=== PATIENT | female | born 1970 | race Caucasian/White ===

== ENCOUNTER 2017-11-04 06:27 | Inpatient (IN) | payer MEDICAID ==
[2017-11-04 07:24] LABS: ADD MAN DIFF? NO
[2017-11-04] MEDS: FAMOTIDINE 20 MG INJ IV ×2 (07:26→20:32)
[2017-11-04] MEDS: ONDANSETRON 4 MG INJ IV (07:26)
[2017-11-04] MEDS: SOD CHLORIDE 0.9% 1,000 ML IV ×3 (07:29→16:03)
[2017-11-04] MEDS: morphine 2 MG INJ IV (07:29)
[2017-11-04 07:34] LABS: ADD UMIC YES; UR ASCORBIC ACID NEGATIVE (NEGATIVE); UR BILIRUBIN (Dip) NEGATIVE (NEGATIVE); UR BLOOD (Dip) 1+ mg/dL (NEGATIVE); UR CLARITY CLEAR (CLEAR); UR COLOR YELLOW (YELLOW); UR GLUCOSE (Dip) NEGATIVE (NEGATIVE); UR KETONES (Dip) NEGATIVE (NEGATIVE); UR LEUKOCYTE ESTERASE (Dip) NEGATIVE Leu/ul (NEGATIVE); UR NITRITE (Dip) NEGATIVE (NEGATIVE); UR RBC 1 /HPF (0-5); UR SPECIFIC GRAVITY (Dip) 1.011 (1.003-1.030); UR TOTAL PROTEIN (Dip) NEGATIVE (NEGATIVE); UR UROBILINOGEN (Dip) NEGATIVE (NEGATIVE); UR WBC 1 /HPF (0-5)
[2017-11-04 07:38] LABS: WHITE BLOOD COUNT 7.5 10^3/ul (4.8-10.8)
[2017-11-04 07:38] LABS: BASOPHILS % 0.4 % (0.0-2.0); EOSINOPHILS # 0.1 10^3/ul (0.0-0.5); EOSINOPHILS % 1.1 % (0.0-7.0); HEMATOCRIT 37.9 % (37.0-47.0); HEMOGLOBIN 12.5 g/dl (12.0-16.0); LYMPHOCYTES # 0.8 10^3/ul (0.8-2.9); LYMPHOCYTES % 10.6 % (15.0-51.0); MEAN CORPUSCULAR HEMOGLOBIN 29.6 pg (29.0-33.0); MEAN CORPUSCULAR VOLUME 89.8 fl (82.0-101.0); MEAN PLATELET VOLUME 10.6 fl (7.4-10.4); MONOCYTE # 0.5 10^3/ul (0.3-0.9); MONOCYTES % 6.6 % (0.0-11.0); NEUTROPHIL # 6.1 10^3/ul (1.6-7.5); PLATELET COUNT 231 10^3/UL (140-415); RED BLOOD COUNT 4.22 10^6/ul (4.20-5.40); RED CELL DISTRIBUTION WIDTH 13.7 % (11.5-14.5)
[2017-11-04 08:02] LABS: ALANINE AMINOTRANSFERASE 34 IU/L (13-69); ALBUMIN 4.2 g/dl (3.3-4.9); ALKALINE PHOSPHATASE 80 IU/L (42-121); ANION GAP 16 (8-16); ASPARTATE AMINO TRANSFERASE 33 IU/L (15-46); BLOOD UREA NITROGEN 15 mg/dl (7-20); CALCIUM 9.1 mg/dl (8.4-10.2); CARBON DIOXIDE 28 mmol/L (21-31); CHLORIDE 107 mmol/L (97-110); GLUCOSE 113 mg/dl (70-220); POTASSIUM 4.2 mmol/L (3.5-5.1); SODIUM 147 mmol/L (135-144); TOTAL PROTEIN 7.2 g/dl (6.1-8.1)
[2017-11-04 08:11] LABS: TROPONIN-I < 0.012 ng/ml (0.00-0.12)
[2017-11-04 08:53] LABS: LIPASE 19851 U/L (23-300)
[2017-11-04] MEDS ORDERED: SOD CHLORIDE 0.9% 1,000 ML IV (10:43)
[2017-11-04] MEDS ORDERED: ONDANSETRON 4 MG INJ IV (11:00)
[2017-11-04] MEDS ORDERED: NACL 0.9% 3 ML SYG IV (11:00)
[2017-11-04] MEDS ORDERED: ACETAMINOPHEN 325 MG TAB PO ×2 (11:00)
[2017-11-04 13:08] LABS: CHOLESTEROL 161 mg/dl (100-200)
[2017-11-04 13:08] LABS: CHOL/HDL RATIO 2.5 RATIO; HDL CHOLESTEROL 62 mg/dl (34-88); LDL CHOLESTEROL,CALCULATED 75 mg/dl; TRIGLYCERIDES 119 mg/dl (0-149)
[2017-11-04 13:12] LABS: HEMOGLOBIN A1C 5.4 % (0-5.9)
[2017-11-04 15:05] LABS: AMPHETAMINE/METHAMPHETAMINE Negative (NEGATIVE); BARBITURATES Negative (NEGATIVE); BENZODIAZEPINES Negative (NEGATIVE); CANNABINOIDS Negative (NEGATIVE); COCAINE Negative (NEGATIVE); OPIATES Negative (NEGATIVE)
[2017-11-04] MEDS: SOD CHLORIDE 0.45% 1,000 ML IV ×2 (20:00→20:25)
[2017-11-05] MEDS: SOD CHLORIDE 0.45% 1,000 ML IV ×3 (04:00→20:00)
[2017-11-05 06:07] LABS: ADD MAN DIFF? NO
[2017-11-05 06:08] LABS: BASOPHILS % 0.7 % (0.0-2.0); EOSINOPHILS # 0.1 10^3/ul (0.0-0.5); EOSINOPHILS % 1.7 % (0.0-7.0); HEMATOCRIT 31.6 % (37.0-47.0); HEMOGLOBIN 10.7 g/dl (12.0-16.0); LYMPHOCYTES # 0.8 10^3/ul (0.8-2.9); LYMPHOCYTES % 26.9 % (15.0-51.0); MEAN CORPUSCULAR HEMOGLOBIN 30.3 pg (29.0-33.0); MEAN CORPUSCULAR HGB CONC 33.9 g/dl (32.0-37.0); MEAN CORPUSCULAR VOLUME 89.5 fl (82.0-101.0); MEAN PLATELET VOLUME 10.5 fl (7.4-10.4); MONOCYTE # 0.3 10^3/ul (0.3-0.9); MONOCYTES % 8.3 % (0.0-11.0); NEUTROPHIL # 1.9 10^3/ul (1.6-7.5); NEUTROPHILS % 62.4 % (39.0-77.0); PLATELET COUNT 183 10^3/UL (140-415); RED BLOOD COUNT 3.53 10^6/ul (4.20-5.40); RED CELL DISTRIBUTION WIDTH 13.5 % (11.5-14.5)
[2017-11-05 06:56] LABS: LIPASE 811 U/L (23-300)
[2017-11-05] MEDS: FAMOTIDINE 20 MG INJ IV ×2 (08:24→20:14)
[2017-11-05 08:45] LABS: ALANINE AMINOTRANSFERASE 36 IU/L (13-69); ALBUMIN 2.8 g/dl (3.3-4.9); ALBUMIN/GLOBULIN RATIO 1.03; ALKALINE PHOSPHATASE 66 IU/L (42-121); ANION GAP 12 (8-16); ASPARTATE AMINO TRANSFERASE 26 IU/L (15-46); BILIRUBIN,INDIRECT 0.2 mg/dl (0-1.1); BILIRUBIN,TOTAL 0.2 mg/dl (0.2-1.3); BLOOD UREA NITROGEN 8 mg/dl (7-20); CALCIUM 8.3 mg/dl (8.4-10.2); CARBON DIOXIDE 21 mmol/L (21-31); CHLORIDE 113 mmol/L (97-110); CREATININE 0.58 mg/dl (0.44-1.00); GLUCOSE 79 mg/dl (70-220); MAGNESIUM 1.6 mg/dl (1.7-2.5); PHOSPHORUS 3.2 mg/dl (2.5-4.9); POTASSIUM 3.4 mmol/L (3.5-5.1); SODIUM 143 mmol/L (135-144); TOTAL PROTEIN 5.5 g/dl (6.1-8.1)
[2017-11-05] MEDS: POTASSIUM CHLORIDE 100 ML IVPB ×3 (13:53→18:15)
[2017-11-06] MEDS: SOD CHLORIDE 0.45% 1,000 ML IV (02:03)
[2017-11-06 05:08] LABS: ADD MAN DIFF? NO
[2017-11-06 05:14] LABS: BASOPHILS % 0.8 % (0.0-2.0); EOSINOPHILS # 0.1 10^3/ul (0.0-0.5); EOSINOPHILS % 0.9 % (0.0-7.0); HEMATOCRIT 34.6 % (37.0-47.0); HEMOGLOBIN 11.5 g/dl (12.0-16.0); LYMPHOCYTES # 0.8 10^3/ul (0.8-2.9); LYMPHOCYTES % 15.5 % (15.0-51.0); MEAN CORPUSCULAR HEMOGLOBIN 29.9 pg (29.0-33.0); MEAN CORPUSCULAR HGB CONC 33.2 g/dl (32.0-37.0); MEAN CORPUSCULAR VOLUME 89.9 fl (82.0-101.0); MEAN PLATELET VOLUME 10.4 fl (7.4-10.4); MONOCYTE # 0.3 10^3/ul (0.3-0.9); MONOCYTES % 6.2 % (0.0-11.0); NEUTROPHILS % 76.2 % (39.0-77.0); PLATELET COUNT 213 10^3/UL (140-415); RED BLOOD COUNT 3.85 10^6/ul (4.20-5.40); RED CELL DISTRIBUTION WIDTH 13.6 % (11.5-14.5)
[2017-11-06 05:14] LABS: WHITE BLOOD COUNT 5.3 10^3/ul (4.8-10.8)
[2017-11-06 05:35] LABS: ALANINE AMINOTRANSFERASE 36 IU/L (13-69); ALBUMIN 3.4 g/dl (3.3-4.9); ALBUMIN/GLOBULIN RATIO 1.21; ALKALINE PHOSPHATASE 82 IU/L (42-121); AMYLASE 128 U/L (11-123); ANION GAP 18 (8-16); ASPARTATE AMINO TRANSFERASE 25 IU/L (15-46); BILIRUBIN,INDIRECT 0.3 mg/dl (0-1.1); BILIRUBIN,TOTAL 0.3 mg/dl (0.2-1.3); BLOOD UREA NITROGEN 11 mg/dl (7-20); CALCIUM 8.7 mg/dl (8.4-10.2); CARBON DIOXIDE 16 mmol/L (21-31); CHLORIDE 111 mmol/L (97-110); CREATININE 0.68 mg/dl (0.44-1.00); GLUCOSE 52 mg/dl (70-220); POTASSIUM 4.6 mmol/L (3.5-5.1); SODIUM 140 mmol/L (135-144); TOTAL PROTEIN 6.2 g/dl (6.1-8.1)
[2017-11-06 05:50] LABS: LIPASE 434 U/L (23-300)
[2017-11-06] MEDS: FAMOTIDINE 20 MG INJ IV ×2 (08:28→20:28)
[2017-11-06] MEDS: POTASSIUM CHLORIDE 20 MEQ in LACTATED RINGER'S 1,000 ML IV ×2 (08:28→23:28)
[2017-11-06] MEDS: TAMOXIFEN 10 MG TAB PO (12:00)
[2017-11-06] MEDS: [UNRECOGNIZED DRUG - OTHER] PO (12:00)
[2017-11-06 13:39] LABS: OCCULT BLOOD STOOL NEGATIVE (NEGATIVE)
[2017-11-06 17:50] LABS: LIPASE 334 U/L (23-300)
[2017-11-07 05:37] LABS: ADD MAN DIFF? NO
[2017-11-07 05:41] LABS: WHITE BLOOD COUNT 3.4 10^3/ul (4.8-10.8)
[2017-11-07 05:41] LABS: BASOPHILS % 0.6 % (0.0-2.0); EOSINOPHILS # 0.1 10^3/ul (0.0-0.5); EOSINOPHILS % 1.8 % (0.0-7.0); HEMATOCRIT 31.3 % (37.0-47.0); HEMOGLOBIN 10.8 g/dl (12.0-16.0); LYMPHOCYTES # 0.7 10^3/ul (0.8-2.9); LYMPHOCYTES % 21.8 % (15.0-51.0); MEAN CORPUSCULAR HGB CONC 34.5 g/dl (32.0-37.0); MEAN CORPUSCULAR VOLUME 86.9 fl (82.0-101.0); MEAN PLATELET VOLUME 10.6 fl (7.4-10.4); MONOCYTE # 0.3 10^3/ul (0.3-0.9); MONOCYTES % 7.9 % (0.0-11.0); NEUTROPHIL # 2.3 10^3/ul (1.6-7.5); NEUTROPHILS % 67.6 % (39.0-77.0); PLATELET COUNT 191 10^3/UL (140-415); RED CELL DISTRIBUTION WIDTH 13.6 % (11.5-14.5)
[2017-11-07 06:11] LABS: LIPASE 340 U/L (23-300)
[2017-11-07 06:15] LABS: ALANINE AMINOTRANSFERASE 27 IU/L (13-69); ALBUMIN 3.2 g/dl (3.3-4.9); ALBUMIN/GLOBULIN RATIO 1.23; ALKALINE PHOSPHATASE 70 IU/L (42-121); AMYLASE 98 U/L (11-123); ANION GAP 16 (8-16); ASPARTATE AMINO TRANSFERASE 18 IU/L (15-46); BILIRUBIN,INDIRECT 0.2 mg/dl (0-1.1); BILIRUBIN,TOTAL 0.2 mg/dl (0.2-1.3); BLOOD UREA NITROGEN 5 mg/dl (7-20); CALCIUM 8.6 mg/dl (8.4-10.2); CARBON DIOXIDE 23 mmol/L (21-31); CHLORIDE 110 mmol/L (97-110); CREATININE 0.54 mg/dl (0.44-1.00); GLUCOSE 90 mg/dl (70-220); SODIUM 145 mmol/L (135-144); TOTAL PROTEIN 5.8 g/dl (6.1-8.1)
[2017-11-07] MEDS: FAMOTIDINE 20 MG INJ IV ×2 (08:29→21:11)
[2017-11-07] MEDS: TAMOXIFEN 10 MG TAB PO (08:31)
[2017-11-07] MEDS: [UNRECOGNIZED DRUG - OTHER] PO (08:32)
[2017-11-07] MEDS: POTASSIUM CHLORIDE 20 MEQ in LACTATED RINGER'S 1,000 ML IV ×2 (12:22→17:43)
[2017-11-08 04:46] LABS: ADD MAN DIFF? NO
[2017-11-08 04:49] LABS: BASOPHILS % 0.7 % (0.0-2.0); EOSINOPHILS # 0.1 10^3/ul (0.0-0.5); EOSINOPHILS % 3.9 % (0.0-7.0); HEMATOCRIT 32.2 % (37.0-47.0); HEMOGLOBIN 10.8 g/dl (12.0-16.0); LYMPHOCYTES # 0.9 10^3/ul (0.8-2.9); LYMPHOCYTES % 29.2 % (15.0-51.0); MEAN CORPUSCULAR HEMOGLOBIN 29.8 pg (29.0-33.0); MEAN CORPUSCULAR HGB CONC 33.5 g/dl (32.0-37.0); MEAN CORPUSCULAR VOLUME 88.7 fl (82.0-101.0); MEAN PLATELET VOLUME 10.6 fl (7.4-10.4); MONOCYTE # 0.3 10^3/ul (0.3-0.9); MONOCYTES % 10.2 % (0.0-11.0); NEUTROPHIL # 1.7 10^3/ul (1.6-7.5); PLATELET COUNT 187 10^3/UL (140-415); RED BLOOD COUNT 3.63 10^6/ul (4.20-5.40); RED CELL DISTRIBUTION WIDTH 13.7 % (11.5-14.5)
[2017-11-08 04:49] LABS: WHITE BLOOD COUNT 3.1 10^3/ul (4.8-10.8)
[2017-11-08 05:18] LABS: ALANINE AMINOTRANSFERASE 32 IU/L (13-69); ALBUMIN/GLOBULIN RATIO 1.11; ALKALINE PHOSPHATASE 65 IU/L (42-121); AMYLASE 94 U/L (11-123); ANION GAP 13 (8-16); ASPARTATE AMINO TRANSFERASE 18 IU/L (15-46); BILIRUBIN,INDIRECT 0.2 mg/dl (0-1.1); BILIRUBIN,TOTAL 0.2 mg/dl (0.2-1.3); BLOOD UREA NITROGEN 6 mg/dl (7-20); CALCIUM 8.5 mg/dl (8.4-10.2); CARBON DIOXIDE 25 mmol/L (21-31); CHLORIDE 111 mmol/L (97-110); CREATININE 0.51 mg/dl (0.44-1.00); GLUCOSE 97 mg/dl (70-220); POTASSIUM 3.9 mmol/L (3.5-5.1); SODIUM 145 mmol/L (135-144); TOTAL PROTEIN 5.7 g/dl (6.1-8.1)
[2017-11-08 05:24] LABS: LIPASE 411 U/L (23-300)
[2017-11-08 05:33] LABS: MAGNESIUM 1.6 mg/dl (1.7-2.5)
[2017-11-08 05:33] LABS: PHOSPHORUS 3.3 mg/dl (2.5-4.9)
[2017-11-08] MEDS ORDERED: metroNIDAZOLE 500 MG/100 ML NS IVPB (07:00)
[2017-11-08] MEDS: POTASSIUM CHLORIDE 20 MEQ in LACTATED RINGER'S 1,000 ML IV (07:23)
[2017-11-08] MEDS: [UNRECOGNIZED DRUG - OTHER] PO (07:25)
[2017-11-08] MEDS: FAMOTIDINE 20 MG INJ IV ×2 (08:39→22:00)
[2017-11-08] MEDS: TAMOXIFEN 10 MG TAB PO (08:45)
[2017-11-08] MEDS: POTASSIUM CHLORIDE 10 MEQ in SOD CHLORIDE 0.45% 1,000 ML IV (11:17)
[2017-11-08] MEDS: MAGNESIUM SULFATE 2 GM/50 ML 50 ML IVPB (13:59)
[2017-11-08] MEDS ORDERED: ONDANSETRON 4 MG INJ IV (18:30)
[2017-11-08] MEDS ORDERED: HYDROmorphONE (0.2 MG/ML) 10ML SYG IV ×3 (18:30)
[2017-11-08] MEDS ORDERED: METOCLOPRAMIDE 10 MG INJ IV (18:30)
[2017-11-08] MEDS ORDERED: FENTAnyl 50 MCG/ML VIAL IV (18:30)
[2017-11-08] MEDS ORDERED: MEPERIDINE 25 MG INJ IV (18:30)
[2017-11-08] MEDS ORDERED: DIPHENHYDRAMINE 50 MG INJ IV (18:30)
[2017-11-08] MEDS: BUPIVACAINE 0.25% (MPF) 30 ML INJ ×2 (19:10→20:05)
[2017-11-08] MEDS: LIDOCAINE 1%/EPI 30 ML INJ ×2 (19:10→20:05)
[2017-11-08] MEDS ORDERED: FENTAnyl 50 MCG/ML VIAL (19:11)
[2017-11-08] MEDS ORDERED: LIDOCAINE 100 MG SYRINGE (19:22)
[2017-11-08] MEDS ORDERED: ROCURONIUM 50 MG INJ (19:22)
[2017-11-08] MEDS ORDERED: SUCCINYLCHOLINE CHLORIDE 100 MG/5 ML SYG IV (19:22)
[2017-11-08] MEDS ORDERED: PROPOFOL 20 ML (19:22)
[2017-11-08] MEDS ORDERED: ROPIVACAINE 0.5 % 30 ML VIAL (19:23)
[2017-11-08] MEDS ORDERED: SUGAMMADEX SODIUM 200 MG/2 ML VIAL IV (19:23)
[2017-11-08] MEDS ORDERED: CEFAZOLIN 1 GM INJ (19:23)
[2017-11-08] MEDS ORDERED: PHENYLephrine (100 MCG/ML) 5ML SYG (19:33)
[2017-11-08] MEDS: ONDANSETRON 4 MG INJ IV (21:18)
[2017-11-08] MEDS: FENTAnyl 50 MCG/ML VIAL IV (21:20)
[2017-11-09] MEDS: morphine 2 MG INJ IV ×3 (00:07→09:28)
[2017-11-09] MEDS: POTASSIUM CHLORIDE 10 MEQ in SOD CHLORIDE 0.45% 1,000 ML IV ×2 (00:54→07:33)
[2017-11-09 05:13] LABS: ADD MAN DIFF? NO
[2017-11-09 05:17] LABS: BASOPHILS % 0.3 % (0.0-2.0); EOSINOPHILS % 0.3 % (0.0-7.0); HEMATOCRIT 32.6 % (37.0-47.0); LYMPHOCYTES # 0.7 10^3/ul (0.8-2.9); LYMPHOCYTES % 8.5 % (15.0-51.0); MEAN CORPUSCULAR HEMOGLOBIN 29.8 pg (29.0-33.0); MEAN CORPUSCULAR HGB CONC 33.7 g/dl (32.0-37.0); MEAN CORPUSCULAR VOLUME 88.3 fl (82.0-101.0); MEAN PLATELET VOLUME 10.6 fl (7.4-10.4); MONOCYTE # 0.3 10^3/ul (0.3-0.9); MONOCYTES % 4.2 % (0.0-11.0); NEUTROPHIL # 6.6 10^3/ul (1.6-7.5); NEUTROPHILS % 86.4 % (39.0-77.0); PLATELET COUNT 188 10^3/UL (140-415); RED BLOOD COUNT 3.69 10^6/ul (4.20-5.40); RED CELL DISTRIBUTION WIDTH 13.8 % (11.5-14.5)
[2017-11-09 05:17] LABS: WHITE BLOOD COUNT 7.7 10^3/ul (4.8-10.8)
[2017-11-09 05:50] LABS: ANION GAP 15 (8-16); BLOOD UREA NITROGEN 4 mg/dl (7-20); CALCIUM 8.3 mg/dl (8.4-10.2); CARBON DIOXIDE 23 mmol/L (21-31); CHLORIDE 105 mmol/L (97-110); CREATININE 0.51 mg/dl (0.44-1.00); GLUCOSE 98 mg/dl (70-220); MAGNESIUM 1.7 mg/dl (1.7-2.5); SODIUM 139 mmol/L (135-144)
[2017-11-09 06:14] LABS: LIPASE 128 U/L (23-300)
[2017-11-09] MEDS: [UNRECOGNIZED DRUG - OTHER] PO (07:25)
[2017-11-09] MEDS: FAMOTIDINE 20 MG INJ IV (09:26)
[2017-11-09] MEDS: TAMOXIFEN 10 MG TAB PO (09:28)
[2017-11-09] MEDS ORDERED: HYDROCODONE/APAP (5/325) TAB PO (10:00)
== END 2017-11-09 14:27 | disposition home or self-care (01) | DRG 418 ==
LOC: MS1 11-06 16:25 → E/R 06:27 → MS3 10:33
PROC: 0FT44ZZ Resection of Gallbladder, Percutaneous Endoscopic Approach (ICD-10-PCS; principal; 2017-11-08 16:30)
PROC: 0FB04ZX Excision of Liver, Percutaneous Endoscopic Approach, Diagnostic (ICD-10-PCS; 2017-11-08 16:30)
DX: K85.10 Biliary acute pancreatitis without necrosis or infection (principal); E87.0 Hyperosmolality and hypernatremia; Q44.7 Other congenital malformations of liver; K80.20 Calculus of gallbladder without cholecystitis without obstruction; C50.912 Malignant neoplasm of unspecified site of left female breast; E88.09 Other disorders of plasma-protein metabolism, not elsewhere classified; E86.0 Dehydration; E87.6 Hypokalemia; Z90.12 Acquired absence of left breast and nipple; D64.9 Anemia, unspecified
CPT/HCPCS: 36415; 71045; 76705; 80048; 80053; 80061; 80307; 81001; 81025; 82150; 82270; 82962; 83036; 83690; 83735; 84100; 84443; 84484; 85025; 88304; 88307; 88313; 93005; 96374; 96375; 99285-25

== ENCOUNTER 2018-10-30 08:41 | Day surgery (SDC) | payer MEDICAID ==
[~2018-10-30 08:41] MED LIST: CEFAZOLIN 2 GM/50 ML (PMX) 50 ML IVPB; SEVOFLURANE 15 MIN; SOD CHLORIDE 0.9% 1,000 ML IV
[2018-10-30 10:19] LABS: INR 0.87; PROTIME 11.9 Sec (11.9-14.9); PT RATIO 0.9
[2018-10-30] MEDS ORDERED: LIDOCAINE 1%/EPI (1:100,000) (MDV) 20 ML (10:19)
[2018-10-30 10:20] LABS: PARTIAL THROMBOPLASTIN TIME 27.4 Sec (23.0-35.0)
[2018-10-30] MEDS ORDERED: MIDAZOLAM 1 MG/ML 2 ML INJ (10:43)
[2018-10-30] MEDS ORDERED: FENTAnyl 50 MCG/ML VIAL (10:44)
[2018-10-30] MEDS ORDERED: PHENYLephrine (100 MCG/ML) 5ML SYG (10:51)
[2018-10-30] MEDS ORDERED: PROPOFOL 20 ML (11:17)
[2018-10-30] MEDS ORDERED: LIDOCAINE 2% (SDV) 5 ML INJ (11:17)
[2018-10-30] MEDS ORDERED: CEFAZOLIN 1 GM INJ (11:17)
[2018-10-30] MEDS ORDERED: ONDANSETRON 4 MG INJ (11:18)
[2018-10-30] MEDS: LIDOCAINE 1%/EPI (1:100,000) (MDV) 20 ML INJ (11:22)
[2018-10-30] MEDS ORDERED: DIPHENHYDRAMINE 50 MG INJ IV (12:00)
[2018-10-30] MEDS ORDERED: FENTAnyl 50 MCG/ML VIAL IV (12:00)
[2018-10-30] MEDS ORDERED: MEPERIDINE 25 MG INJ IV (12:00)
[2018-10-30] MEDS ORDERED: HYDROmorphONE 1 MG/5 ML IV SYRINGE IV ×2 (12:00)
[2018-10-30] MEDS: ONDANSETRON 4 MG INJ IV (12:16)
== END 2018-10-30 13:44 | disposition home or self-care (01) ==
LOC: SDS 08:41
DX: L73.8 Other specified follicular disorders (principal); R23.4 Changes in skin texture
CPT/HCPCS: 11104; 84703; 85610; 85730; 88305

== ENCOUNTER 2018-11-18 19:38 | Emergency (ER) | payer MEDICAID ==
[2018-11-18 22:34] LABS: ADD MAN DIFF? NO
[2018-11-18 22:36] LABS: WHITE BLOOD COUNT 4.3 10^3/ul (4.8-10.8)
[2018-11-18 22:36] LABS: BASOPHILS % 0.2 % (0.0-2.0); EOSINOPHILS % 0.9 % (0.0-7.0); HEMATOCRIT 36.6 % (37.0-47.0); LYMPHOCYTES # 1.3 10^3/ul (0.8-2.9); LYMPHOCYTES % 30.8 % (15.0-51.0); MEAN CORPUSCULAR HEMOGLOBIN 29.5 pg (29.0-33.0); MEAN CORPUSCULAR HGB CONC 32.8 g/dl (32.0-37.0); MEAN CORPUSCULAR VOLUME 89.9 fl (82.0-101.0); MEAN PLATELET VOLUME 10.1 fl (7.4-10.4); MONOCYTE # 0.3 10^3/ul (0.3-0.9); MONOCYTES % 7.5 % (0.0-11.0); NEUTROPHIL # 2.6 10^3/ul (1.6-7.5); NEUTROPHILS % 60.6 % (39.0-77.0); PLATELET COUNT 228 10^3/UL (140-415); RED BLOOD COUNT 4.07 10^6/ul (4.20-5.40); RED CELL DISTRIBUTION WIDTH 13.1 % (11.5-14.5)
[2018-11-18] MEDS: SOD CHLORIDE 0.9% 500 ML IV (22:48)
[2018-11-18] MEDS: KETOROLAC 15 MG INJ IV (22:49)
[2018-11-18] MEDS: ONDANSETRON 4 MG INJ IV (22:49)
[2018-11-18 22:55] LABS: ADD UMIC YES; UR ASCORBIC ACID NEGATIVE (NEGATIVE); UR BILIRUBIN (Dip) NEGATIVE (NEGATIVE); UR BLOOD (Dip) 1+ mg/dL (NEGATIVE); UR CLARITY CLEAR (CLEAR); UR COLOR YELLOW (YELLOW); UR GLUCOSE (Dip) NEGATIVE (NEGATIVE); UR KETONES (Dip) NEGATIVE (NEGATIVE); UR LEUKOCYTE ESTERASE (Dip) TRACE Leu/ul (NEGATIVE); UR MUCUS FEW /HPF (NONE SEEN); UR NITRITE (Dip) NEGATIVE (NEGATIVE); UR RBC 1 /HPF (0-5); UR SPECIFIC GRAVITY (Dip) 1.011 (1.003-1.030); UR SQUAMOUS EPITHELIAL CELL FEW /HPF (FEW); UR TOTAL PROTEIN (Dip) NEGATIVE (NEGATIVE); UR UROBILINOGEN (Dip) NEGATIVE (NEGATIVE); UR WBC 4 /HPF (0-5)
[2018-11-18 23:04] LABS: ALANINE AMINOTRANSFERASE 58 IU/L (13-69); ALBUMIN/GLOBULIN RATIO 1.25; ALKALINE PHOSPHATASE 80 IU/L (42-121); ANION GAP 9 (5-13); ASPARTATE AMINO TRANSFERASE 39 IU/L (15-46); BILIRUBIN,INDIRECT 0.3 mg/dl (0-1.1); BILIRUBIN,TOTAL 0.3 mg/dl (0.2-1.3); BLOOD UREA NITROGEN 16 mg/dl (7-20); CARBON DIOXIDE 24 mmol/L (21-31); CHLORIDE 108 mmol/L (97-110); CREATININE 0.61 mg/dl (0.44-1.00); Estimated GFR > 60 mL/min (>60); GLUCOSE 92 mg/dl (70-220); LIPASE 235 U/L (23-300); POTASSIUM 4.3 mmol/L (3.5-5.1); SODIUM 141 mmol/L (135-144); TOTAL PROTEIN 7.2 g/dl (6.1-8.1)
== END 2018-11-19 02:07 | disposition home or self-care (01) ==
LOC: E/R 19:38
DX: R10.11 Right upper quadrant pain (principal); R11.0 Nausea; Z85.3 Personal history of malignant neoplasm of breast
CPT/HCPCS: 36415; 74176; 80053; 81001; 81025; 83690; 85025; 96374; 96375; 99285-25